=== PATIENT | female | born 1980 | race Caucasian/White ===

== ENCOUNTER 2017-08-07 18:14 | Emergency (ER) | payer OTHER ==
--- NOTE | 2017-08-07 19:37 | EDPHY ---
HPI/HX/ROS/PE/MDM Narrative: CHIEF COMPLAINT: Pain under right ribs, shortness of breath HISTORY OF PRESENT ILLNESS: The patient is a 37 y/o female with a history of asthma complaining of pain under her right ribs and shortness of breath. On Friday, 6 days ago she developed a fever, sore throat, and body aches. Over the weekend she developed a cough and had to use her inhaler more than normal. On Friday, 3 days ago, she was seen at an urgent care and they suspected she had the flu. She was never tested for the flu. The urgent care provider prescribed her steroids, but this did not relieve her cough. Yesterday she started taking Zithromax. Over the last several days her legs have been slightly swollen. Today she was seen by her doctor who was concerned that the patient developed a blood clot since she started having the pain in her ribs shortly after starting control 2 weeks ago. This afternoon she took a nebulizer and has been breathing better than the last several days. Denies familial history of DVT or PE. No chills, chest pain, palpitations, diarrhea, urinary complaints, headache, lightheadedness. REVIEW OF SYSTEMS: Aside from elements discussed in the HPI, a comprehensive 10-point review of systems was reviewed and is negative. PAST MEDICAL HISTORY: Asthma, tonsillectomy, right hip repair SOCIAL HISTORY: at bedside, lives in [place], nonsmoker VITAL SIGNS:BP: 159/112, others reviewed by me GENERAL: Well-developed, well-nourished, resting comfortably in no respiratory distress. HEENT: Atraumatic. Eyes: No icterus, no injection. Mouth: moist mucous membranes. No erythema or lesions. Neck: supple with no adenopathy. LUNGS: Wheezes to auscultation bilaterally, wheezy cough. No rhonchi or rales. CARDIAC: Regular rate and rhythm, no rubs, murmurs or gallops. ABDOMEN: Soft, nontender, nondistended, bowel sounds normal. BACK: No CVA tenderness. EXTREMITIES: No trauma. No edema. Range of motion is normal throughout. NEURO: Alert and oriented, grossly nonfocal. SKIN: Warm and dry, no rash. PSYCHIATRIC: Normal mentation, no agitation. Portions of this note were transcribed by a durable medical equipment repairer. I personally performed a history, physical exam, medical decision making, and confirmed accuracy of information the transcribed note. ED Course: The patient is a 37 y/o female with a history of asthma presenting with shortness of breath, cough, and body aches for 6 days. Her physician was concerned that the patient developed a blood clot as she developed right rib pain shortly after starting control 2 weeks ago. On exam, she has bilateral wheezes to auscultation and a wheezy cough. Labs and chest CT ordered. DuoNeb and 1L IV NS administered. 2019: Patient is nauseous, 4mg IV Zofran administered. 2049: Spoke with Dr. Hope, radiologist, patient's chest CT is negative for a PE. There is an incidental finding of a left thyroid nodule. 2057: Reassessed patient and discussed negative laboratory and imaging findings. I have advised her to continue to take the medications previously prescribed as well as take Tessalon Pearles. Return precautions provided; patient is comfortable with this plan. MDM: Differential diagnosis for the patient's cough was considered including but not limited to viral versus bacterial bronchitis, asthma, COPD, pulmonary emboli, upper respiratory infection, lower respiratory infection, and bronchospasm. - Data Points Imaging: Discussed imaging studies w/ call worker person Radiologist, I viewed and interpreted images myself Laboratory Results: Laboratory Results 08/07/17 20:12 08/07/17 20:12 Medications Given: Discontinued Medications Albuterol/Ipratropium (Duoneb) 3 ml IH EDNOW ONE Stop: 08/07/17 19:59 Last Admin: 08/07/17 20:12 Dose: 3 ml Sodium Chloride (Ns) 1,000 mls @ 0 mls/hr IV ONCE ONE; Wide Open PRN Reason: Protocol Stop: 08/07/17 19:59 Last Admin: 08/07/17 20:13 Dose: 1,000 mls Ondansetron HCl (Zofran) 4 mg IVP EDNOW ONE Stop: 08/07/17 20:20 Last Admin: 08/07/17 20:20 Dose: 4 mg General Time Seen by Provider: 08/07/17 19:30 Initial Vital Signs: Initial Vital Signs Temperature (C) 36.8 C 08/07/17 18:28 Heart Rate 73 08/07/17 18:28 Respiratory Rate 16 08/07/17 18:28 Blood Pressure 159/112 H 08/07/17 18:28 O2 Sat (%) 95 08/07/17 18:28 O2 Delivery Mode Room Air Allergies/Adverse Reactions: Penicillins Allergy (Verified 08/07/17 18:26) Home Medications: Medication Instructions Recorded Advair 100/50 (*) 08/07/17 Albuterol 08/07/17 Azithromycin 08/07/17 Benzonatate [Tessalon Pearles (RX)] 100 mg PO TID PRN #20 cap 08/07/17 Montelukast Sodium 08/07/17 Omeprazole 08/07/17 Prednisone 08/07/17 Tizanidine HCl 08/07/17 Departure - Departure Disposition: Home, Routine, Self-Care Clinical Impression: Asthma exacerbation, Acute bronchitis Condition: Good Instructions: Asthma (ED), Acute Bronchitis (ED) Additional Instructions: You do not have a blood clot in your lungs. Continue taking your antibiotic and Prednisone as prescribed. Continue to use your nebulizer. Follow up with your primary care provider in the next week. You have an incidental finding of a left thyroid nodule that will need to be further evaluated with an ultrasound. You can schedule this ultrasound with your primary care provider. Return to emergency department or seek care urgently if you're symptoms are worsening despite the above treatment, if you develop shortness of breath, if you're unable to drink fluids secondary to throat pain or other issues, if you developed, vomiting, diarrhea, or have recurrent episodes of fainting. Return immediately for high fever, severe headache or neck pain, difficulty breathing, abdominal pain, rash or other worsening of condition. Referrals: ROMERO RUSSO DO [Other] - As per Instructions Stand Alone Forms: Work Excuse Prescriptions: Benzonatate [Tessalon Pearles (RX)] 100 mg PO TID PRN #20 cap PRN Reason: cough Report Scribed for: Lucretia Nicolas Report Scribed by: Nadeen Harris Date of Report: 08/07/17 Time of Report: 19:36
[2017-08-07] MEDS ORDERED: NS 1,000 ML IV ONE (19:58)
[2017-08-07] MEDS ORDERED: IPRATROPIUM/ALBUTEROL 3 ML DEYVIAL IH ONE (19:58)
[2017-08-07] MEDS ORDERED: ONDANSETRON 4 MG/2 ML VIAL ONE (20:18)
[2017-08-07 20:19] LABS: PLATELET COUNT 260 10^3/uL (150-400)
[2017-08-07] MEDS ORDERED: ONDANSETRON 4 MG/2 ML VIAL IVP ONE (20:19)
[2017-08-07] MEDS ORDERED: IOPAMIDOL (ISOVUE 370) 100 ML BTL IV ONE (20:22)
[2017-08-07 20:58] VITALS: RESP 18
[2017-08-07] MEDS ORDERED: BENZONATATE 100 MG CAP PO ONE (21:11)
[2017-08-07 21:21] VITALS: BP 138/87; PULSE 88; TEMP 98.1; O2SAT 95
== END 2017-08-07 21:20 | disposition home or self-care (01) ==
PROC: 3E0337Z Introduction of Electrolytic and Water Balance Substance into Peripheral Vein, Percutaneous Approach (ICD-10-PCS; principal; 2017-08-07)
DX: J45.901 Unspecified asthma with (acute) exacerbation (principal); J20.9 Acute bronchitis, unspecified; E86.9 Volume depletion, unspecified
CPT/HCPCS: 82947-QW; 96374; J2405; Q9967